=== PATIENT | male | born 1960 | race Caucasian/White ===

== ENCOUNTER 2017-02-13 15:21 | Emergency (ER) | payer OTHER, MEDICAID ==
--- NOTE | 2017-02-13 16:00 | ER Document Report ---
ED General - General Chief Complaint: Low Back Pain Stated Complaint: BACK PAIN Time Seen by Provider: 02/13/17 15:33 Notes: Patient says that he has been feeling weak for the past month. Also having difficulty controlling his urine and "peeing on myself" over that same time. And, the patient also has lower back pain. All of his symptoms have been present for about the past month, but have gotten worse in the past few days. Patient says he is here today because he is unable to stand and walk normally and has not been able to control his urine at all for the past few days. Does not have any numbness in his lower extremities. Does not have any problems with bowel movements. Has never been told he has any prostate condition. Denies any UTI symptoms except for some occasional frequency at nighttime. Has not had any blood in his urine or discomfort urinating. Patient is not aware of any fever. 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 Also has hypertension. Denies diabetes. Patient has patient's medications for depression and anxiety. Patient has chronic low back pain for which she is prescribed baclofen and meloxicam by the [place] [facility]. TRAVEL OUTSIDE OF THE [place] IN LAST 30 DAYS: No - Related Data Allergies/Adverse Reactions: zolpidem [From Ambien] Adverse Reaction (Mild, Verified 06/04/16 16:44) Past Medical History - Social History Smoking Status: Never Smoker Chew tobacco use (# tins/day): No Frequency of alcohol use: None Drug Abuse: None Family History: Reviewed & Not Pertinent - Past Medical History Cardiac Medical History: Reports: Hx Hypercholesterolemia, Hx Hypertension Pulmonary Medical History: Reports: Hx Asthma Psychiatric Medical History: Reports: Hx Anxiety, Hx Depression Past Surgical History: Reports: Hx Oral Surgery, Hx Orthopedic Surgery - OCL repair - Immunizations Hx Diphtheria, Pertussis, Tetanus Vaccination: Yes Review of Systems - Review of Systems Notes: REVIEW OF SYSTEMS: CONSTITUTIONAL : Denies fever. Feels weak all over, especially in his lower extremities. EENT: Denies eye, ear, nose or mouth or throat pain or other symptoms. CARDIOVASCULAR: Denies chest pain. RESPIRATORY: Denies cough, chest congestion, or shortness of breath. GASTROINTESTINAL: Denies abdominal pain or nausea, vomiting, or diarrhea. No problems controlling bowel movements. GENITOURINARY: See HPI. MUSCULOSKELETAL: Denies neck pain but has some lower lumbar back pain, bilateral.. Denies joint pain or swelling. SKIN: Denies rash or skin lesions. NEUROLOGICAL: Denies LOC or altered mental status. Denies headache. Denies sensory loss, no numbness lower extremities. ALL OTHER SYSTEMS REVIEWED AND NEGATIVE. Physical Exam - Vital signs Vitals: Temp Pulse Resp BP Pulse Ox 98.3 F 102 H 16 146/82 H 95 02/13/17 15:25 02/13/17 15:25 02/13/17 15:25 02/13/17 15:25 02/13/17 15:25 Interpretation: Normal - Notes Notes: PHYSICAL EXAMINATION: GENERAL: Well-appearing, in no acute distress. Ambulatory, although slow and deliberate. HEAD: Atraumatic, normocephalic. ENT: oropharynx clear without exudates. Moist mucous membranes. NECK: Normal range of motion, supple. LUNGS: Breath sounds clear and equal bilaterally. HEART: Regular rate and rhythm without murmurs. ABDOMEN: Soft, nontender. No guarding or rebound. No masses felt. No bruits heard. Patient's initial Pham catheter produced about 50 mL of clean-looking urine. He now has about 70 mL in the bag and tubing so he is making an appropriate amount of urine and no evidence of infection or urinary retention. BACK: Mild paralumbar muscle tenderness, but otherwise no tenderness throughout entire remaining back. EXTREMITIES: Normal range of motion without pain. NEUROLOGICAL: Normal speech, normal gait although slow and deliberate. Can maintain his balance, make a turn and get back in the stretcher. Reflexes +1 bilateral and symmetrical awake, alert, and oriented x3. Cranial nerves normal. PSYCH: Normal mood, normal affect. SKIN: Warm, dry, no rashes. Course - Re-evaluation Re-evalutation: 02/13/17 19:53 Labs are all essentially normal. No evidence of a urine infection. Patient had a Pham catheter placed and had a small amount of urine in his bladder. Urine looks clean. Urinalysis is normal. - Vital Signs Vital signs: Temp Pulse Resp BP Pulse Ox 97.3 F 92 19 146/83 H 94 02/13/17 22:09 02/13/17 22:09 02/13/17 22:09 02/13/17 22:09 02/13/17 22:09 - Laboratory Result Diagrams: 02/13/17 16:17 02/13/17 16:17 Laboratory results interpreted by me: 02/13/17 02/13/17 16:17 16:17 RDW 14.4 H Glucose 141 H - Diagnostic Test Radiology reviewed: Image reviewed, Reports reviewed - MRI of the lumbar spine shows degenerative and arthritic changes. All of these findings are of a mild to moderate degree. None are severe. Patient has no evidence of spinal stenosis. Discharge - Discharge Clinical Impression: Back pain Qualifiers: Back pain location: low back pain Chronicity: unspecified Back pain laterality : bilateral Sciatica presence: without sciatica Qualified Code(s): M54.5 - Low back pain Urinary incontinence Qualifiers: Urinary Incontinence type: unspecified incontinence Qualified Code(s): R32 - Unspecified urinary incontinence Condition: Stable Disposition: HOME, SELF-CARE Additional Instructions: OW BACK PAIN: Three out of every four people will have an episode of disabling back pain during their lifetime. Most commonly the pain is due to straining of the muscles and ligaments in the low back. Usual treatment includes: (1) Rest on a firm surface. Avoid lying on your stomach. (2) Ice pack the painful area. After a few days, gentle heat may be used intermittently to relax the area, or ice packs can be continued. (3) Medication may be needed -- muscle relaxers and antiinflammatory medicines are commonly used. (4) As the back improves, exercises are prescribed to strengthen the back and abdominal muscles. Your doctor will advise you on the proper care for your back at each stage in your recovery. You may be better in a few days -- or healing may take several weeks. If new symptoms of a "herniated disc" (radiation of pain, numbness, or tingling down the back of the leg or weakness in the leg) occur, you should be re-examined. Further testing may be necessary. WARM PACKS: After approximately two days, apply gentle heat (such as a heating pad or hot water bottle) for about 20 to 30 minutes about every two hours -- at least four times daily. Warmth and elevation will help you make a more rapid recovery , and will ease the pain considerably. Do not use HOT heat, and never apply heat for longer than 30 minutes. The continuous heat can invisibly damage skin and muscles -- even when no burn is seen on the surface. Damaged muscles can make you MORE sore. USE OF ACETAMINOPHEN (Tylenol): Acetaminophen may be taken for pain relief or fever control. It's much safer than aspirin, offering a wider range of "safe" dosages. It is safe during . Some brand names are Tylenol, Panadol, Datril, Anacin 3, Tempra, and Liquiprin. Acetaminophen can be repeated every four hours. The following are maximum recommended dosages: WEIGHT Dose Drops Elixir Chewable( 80mg) (LBS.) drprs=droppers tsp=teaspoon >89 pounds or adults 650 mg to 900 mg Acetaminophen can be repeated every four hours. Maximum dose not to exceed 4000 mg a day. These maximum recommended dosages are slightly higher than the dosages written on the product container, but these dosages are very safe and below the toxic dosage for acetaminophen. Urinary Incontinence Urinary incontinence is unexpected leakage of urine from the bladder. It can be caused by damaged or weak pelvic muscles (such as after childbirth), bladder inflammation, weak bladder sphincter (valve), medications, prostate problems, and nerve problems. This is a common problem, especially in our older patients. Treatment of incontinence depends on the severity, and on the underlying cause. We test for urinary tract infection and examine for prostate enlargement or prolapse (sagging down) of the bladder and uterus. If we suspect a medicine may be contributing to the problem, we may stop it or lower the dosage. If the problem can't be corrected with medication or surgery, you may need to use absorbent underwear. For men, a "condom catheter" over the penis can collect urine. It's sometimes necessary to keep a catheter inside the bladder. The following are different types of urinary incontinence. Stress incontinence: A sudden burst of urine with cough or sneeze. This is common in women with multiple children. Pelvic muscle (Kegel) exercises may help. An incontinence pad catches the occasional accident. If severe, an operation to suspend of the bladder may correct the problem. Overflow incontinence: Leakage from an over-filled bladder. This type of incontinence is usually caused by an enlarged prostate or narrowed urethra. Prostatic obstruction can be treated with medication. Severe cases may require prostate surgery. Neurogenic bladder: Sudden emptying of the bladder due to injury or disease of the nerves that control the bladder, or overflow caused by lack of bladder contraction (atonic bladder). This usually requires a catheter, or the wearing of incontinence undergarments. A weak (atonic) bladder sometimes responds to medicine such as bethanechol (Urecholine). Overactive bladder: The bladder is irritable and tightens when it's not full. The sudden urge to urinate makes it hard to avoid passage of urine. This can often be treated with medication such as oxybutynin. Sphincter atony: The muscle that holds urine in the bladder is weak. This often causes incontinence at night. Medication such as imipramine or psuedoephedrine can sometimes help. FOLLOW-UP CARE: If you have been referred to a physician for follow-up care, call the physician s office for an appointment as you were instructed or within the next two days. If you experience worsening or a significant change in your symptoms, notify the physician immediately or return to the Emergency Department at any time for re-evaluation. Follow-up at the [place] [facility] for a referral to a urologist if you continue to have your symptoms of poor bladder control.
[2017-02-13 16:24] LABS: ABSOLUTE BASOPHILS # (AUTO) 0.1 10^3/uL (0.0-0.2); ABSOLUTE EOSINOPHILS # (AUTO) 0.1 10^3/uL (0.0-0.6); ABSOLUTE MONOCYTES (AUTO) 0.5 10^3/uL (0.1-1.4); ABSOLUTE NEUT (AUTO) 5.7 10^3/uL (1.7-8.2); BASOPHILS % (AUTO) 0.9 % (0-2); HEMATOCRIT 44.5 % (37.9-51.0); HEMOGLOBIN 15.5 g/dL (13.5-17.0); LYMPHOCYTES % (AUTO) 13.4 % (13-45); MEAN CORPUSCULAR HGB CONC 34.8 g/dL (32.0-36.0); MEAN CORPUSCULAR VOLUME 86 fl (80-97); RED BLOOD COUNT 5.17 10^6/uL (4.35-5.55); RED CELL DISTRIBUTION WIDTH 14.4 % (11.5-14.0); SEGMENTED NEUTROPHILS % (AUTO) 77.7 % (42-78); WHITE BLOOD COUNT 7.3 10^3/uL (4.0-10.5)
[2017-02-13 16:48] LABS: ALANINE AMINOTRANSFERASE 21 U/L (21-72); ALKALINE PHOSPHATASE 78 U/L (38-126); ANION GAP 13 (5-19); ASPARTATE AMINO TRANSFERASE 26 U/L (17-59); BILIRUBIN,DIRECT 0.4 mg/dL (0.0-0.4); BILIRUBIN,TOTAL 0.9 mg/dL (0.2-1.3); BLOOD UREA NITROGEN 15 mg/dL (7-20); CALCIUM 9.3 mg/dL (8.4-10.2); CARBON DIOXIDE 24 mmol/L (22-30); CHLORIDE 105 mmol/L (98-107); CREATININE RESULT 1.24 mg/dL (0.52-1.25); GLUCOSE 141 mg/dL (75-110); LIPASE 64.4 U/L (23-300); POTASSIUM 3.9 mmol/L (3.6-5.0); SODIUM 141.9 mmol/L (137-145); TOTAL PROTEIN 6.4 g/dL (6.3-8.2)
[2017-02-13 17:35] LABS: APPEARANCE,URINE SLIGHTLY-CLOUDY; BILIRUBIN,URINE NEGATIVE (NEGATIVE); GLUCOSE, URINE NEGATIVE (NEGATIVE); KETONES,URINE NEGATIVE (NEGATIVE); LEUKOCYTE ESTERASE,URINE NEGATIVE (NEGATIVE); NITRITE,URINE NEGATIVE (NEGATIVE); PROTEIN,URINE NEGATIVE (NEGATIVE); URINE SPECIFIC GRAVITY 1.019; UROBILINOGEN,URINE NEGATIVE mg/dL (<2.0)
--- NOTE | 2017-02-13 22:02 | RADIOLOGY REPORT (SQ) ---
EXAM DESCRIPTION: MRI LUMBAR SPINE WITHOUT COMPLETED DATE/TIME: 02/13/2017 9:38 pm REASON FOR STUDY: Urinary incontinence and weakness in legs COMPARISON: None. TECHNIQUE: Sagittal and Axial imaging includes T1, T2, STIR and gradient echo sequences. Coronal T2/ HASTE imaging. LIMITATIONS: None. FINDINGS: VISUALIZED UPPER ABDOMEN: Limited evaluation. No acute or suspicious findings suggested. SEGMENTATION: No transitional anatomy. The lowest well-developed disc space is labeled L5-S1. ALIGNMENT: Anatomic. VERTEBRAE: Intact. BONE MARROW: Normal. No marrow replacement or reactive changes. DISC SIGNAL: Loss of height T2 signal L1- 2, L2-3, L5-S1. Loss of T2 signal L4-5. POSTERIOR ELEMENTS: Generally intact. No pars defect evident. HARDWARE: None in the spine. CORD AND CONUS: Normal in size and signal intensity. Conus at the appropriate level. SOFT TISSUES: No aortic aneurysm seen. No bulky retroperitoneal adenopathy or mass. No paraspinal mas s or fluid. L1-L2: Disc bulge asymmetric left with mild narrowing of the left exit foramina. L2-L3: Generalized disc bulge with mild narrowing of the exit foramina. L3-L4: Generalized disc bulge with mild narrowing of the exit foramina. L4-L5: Central disc protrusion. Mild facet ligamentous hypertrophy. Moderate narrowing of the left exit foramina and moderate central canal stenosis. Mild narrowing of the left exit foramina. L5-S1: Generalized disc bulge with central protrusion. Moderate narrowing of the exit foramina. LOWER THORACIC: Incompletely imaged. No stenosis seen. SACRUM: Visualized upper sacrum intact. OTHER: No other significant findings. IMPRESSION: Multilevel spondylosis. At L4-5 there is moderate narrowing of the left exit foramina a nd moderate central canal stenosis. At L5-S1 there is moderate of the exit foramina. TECHNICAL DOCUMENTATION: JOB ID: [id number]- All Rights Reserved
[2017-02-13 22:13] VITALS: BP 146/83
== END 2017-02-13 22:50 | disposition home or self-care (01) ==
LOC: ER 15:21
DX: M54.5 Low back pain (principal); R32 Unspecified urinary incontinence; I10 Essential (primary) hypertension; G89.29 Other chronic pain
CPT/HCPCS: 36415; 51702; 72148; 80053; 81001; 83690; 85025; 87086; 99284

== ENCOUNTER 2018-11-13 17:50 | Observation (INO) | payer OTHER, MEDICARE ==
[2018-11-13 18:43] LABS: ABSOLUTE BASOPHILS # (AUTO) 0.1 10^3/uL (0.0-0.2); ABSOLUTE LYMPHOCYTES (AUTO) 1.1 10^3/uL (0.5-4.7); ABSOLUTE MONOCYTES (AUTO) 0.6 10^3/uL (0.1-1.4); BASOPHILS % (AUTO) 1.1 % (0-2); EOSINOPHILS % (AUTO) 0.3 % (0-6); HEMATOCRIT 51.1 % (37.9-51.0); HEMOGLOBIN 17.7 g/dL (13.5-17.0); LYMPHOCYTES % (AUTO) 12.3 % (13-45); MEAN CORPUSCULAR HEMOGLOBIN 29.2 pg (27.0-33.4); MEAN CORPUSCULAR HGB CONC 34.6 g/dL (32.0-36.0); MEAN CORPUSCULAR VOLUME 84 fl (80-97); MONOCYTES % (AUTO) 6.7 % (3-13); PLATELET COUNT 325 10^3/uL (150-450); RED BLOOD COUNT 6.06 10^6/uL (4.35-5.55); SEGMENTED NEUTROPHILS % (AUTO) 79.6 % (42-78); TOTAL CELLS COUNTED % (AUTO) 100 %; WHITE BLOOD COUNT 8.8 10^3/uL (4.0-10.5)
--- NOTE | 2018-11-13 18:43 | ER Document Report ---
ED General - General Chief Complaint: Syncope Stated Complaint: FALL Time Seen by Provider: 11/13/18 18:14 Mode of Arrival: Stretcher Information source: Patient Notes: This is a 58-year-old man with a history of asthma, dyslipidemia, essential tremor who was brought into the emergency room after a syncopal episode. Patient does not remember the event. He apparently fell and hit his head. TRAVEL OUTSIDE OF THE [place] IN LAST 30 DAYS: No - HPI Onset: Just prior to arrival Onset/Duration: Sudden Quality of pain: No pain Severity: None Pain Level: Denies Associated symptoms: denies: Chest pain, Fever, Shortness of breath Exacerbated by: Denies Relieved by: Denies Similar symptoms previously: No Recently seen / treated by doctor: No - Related Data Allergies/Adverse Reactions: zolpidem [From Ambien] Adverse Reaction (Mild, Verified 06/04/16 16:44) Past Medical History - General Information source: Patient - Social History Smoking Status: Unknown if Ever Smoked Cigarette use (# per day): No Chew tobacco use (# tins/day): No Frequency of alcohol use: None Drug Abuse: None Lives with: Alone Family History: Reviewed & Not Pertinent Patient has suicidal ideation: No Patient has homicidal ideation: No - Past Medical History Cardiac Medical History: Reports: Hx Hypercholesterolemia, Hx Hypertension Denies: Hx Heart Attack Pulmonary Medical History: Reports: Hx Asthma Neurological Medical History: Denies: Hx Cerebrovascular Accident, Hx Seizures Renal/ Medical History: Denies: Hx Peritoneal Dialysis GI Medical History: Denies: Hx Hepatitis, Hx Hiatal Hernia, Hx Ulcer Psychiatric Medical History: Reports: Hx Anxiety, Hx Depression Infectious Medical History: Denies: Hx Hepatitis Past Surgical History: Reports: Hx Oral Surgery, Hx Orthopedic Surgery - OCL repair, Other - Anal fissure. Denies: Hx Open Heart Surgery, Hx Pacemaker - Immunizations Hx Diphtheria, Pertussis, Tetanus Vaccination: Yes Review of Systems - Review of Systems Constitutional: denies: Chills, Fever EENT: No symptoms reported Cardiovascular: See HPI Respiratory: No symptoms reported Gastrointestinal: No symptoms reported Genitourinary: No symptoms reported Male Genitourinary: No symptoms reported Musculoskeletal: No symptoms reported Skin: No symptoms reported Hematologic/Lymphatic: No symptoms reported Neurological/Psychological: See HPI Physical Exam - Vital signs Vitals: Temp Pulse Resp BP 97.9 F 100 16 148/100 H 11/13/18 18:13 11/13/18 18:13 11/13/18 18:13 11/13/18 18:13 Notes: Physical exam: GENERAL: Patient is alert and oriented x3, no acute distress. HEAD: She does have abrasions to the left side of the temporal region as well as the left cheek, normocephalic. EYES: Pupils equal round and reactive to light, extraocular movements intact, sclera anicteric, conjunctiva are normal. ENT: TMs normal, nares patent, oropharynx clear without exudates. Moist mucous membranes. NECK: Normal range of motion, supple without obvious mass or JVD. LUNGS: Breath sounds clear to auscultation bilaterally and equal. No wheezes rales or rhonchi. HEART: Regular rate and rhythm without murmurs, rubs or gallops. ABDOMEN: Soft, normoactive bowel sounds. No tenderness to palpation. No guarding, no rebound. No masses appreciated. EXTREMITIES: Normal range of motion, no pitting or edema. No clubbing or cyanosis. NEUROLOGICAL: Cranial nerves II through XII grossly intact. Normal speech, moving all extremities. PSYCH: Normal mood, normal affect. SKIN: Warm, Dry, normal turgor, no rashes or lesions noted. Course - Vital Signs Vital signs: Temp Pulse Resp BP Pulse Ox 97.9 F 100 20 146/99 H 97 11/13/18 18:13 11/13/18 18:13 11/14/18 01:01 11/14/18 01:00 11/14/18 01:01 - Laboratory Result Diagrams: 11/13/18 18:06 11/13/18 18:06 Laboratory results interpreted by me: 11/13/18 11/13/18 11/13/18 17:59 18:06 18:06 RBC 6.06 H Hgb 17.7 H Hct 51.1 H Seg Neutrophils % 79.6 H Lymphocytes % 12.3 L Sodium 136.9 L Potassium 3.5 L Carbon Dioxide 20 L POC Glucose 125 H Direct Bilirubin 0.5 H Alkaline Phosphatase 180 H - Diagnostic Test Radiology reviewed: Image reviewed, Reports reviewed - CT of the head, cervical spine shows no acute pathology. Chest x-ray is clear - EKG Interpretation by Me Rate: Normal Rhythm: NSR - EKG shows normal sinus rhythm with a ventral of the rate of 94, poor R wave progression, no acute ST-T wave changes Discharge - Discharge Clinical Impression: Syncope Qualifiers: Encounter type: initial encounter Condition: Stable Disposition: ADMITTED OBSERVATION Admitting Provider: Hospitalist Unit Admitted: Telemetry
--- NOTE | 2018-11-13 18:44 | RADIOLOGY REPORT (SQ) ---
EXAM DESCRIPTION: CHEST SINGLE VIEW COMPLETED DATE/TIME: 11/13/2018 6:40 pm REASON FOR STUDY: syncope COMPARISON: 06/04/2016 EXAM PARAMETERS: NUMBER OF VIEWS: One view. TECHNIQUE: Single frontal radiographic view of the chest acquired. RADIATION DOSE: NA LIMITATIONS: None. FINDINGS: LUNGS AND PLEURA: No opacities, masses or pneumothorax. No pleural effusion. MEDIASTINUM AND HILAR STRUCTURES: No masses. Contour normal. HEART AND VASCULAR STRUCTURES: Heart normal in size. Normal vasculature. BONES: No acute findings. HARDWARE: None in the chest. OTHER: No other significant finding. IMPRESSION: NO ACUTE RADIOGRAPHIC FINDING IN THE CHEST. TECHNICAL DOCUMENTATION: JOB ID: [id number] [employer]- All Rights Reserved Reading location - IP/workstation name: [email or web address]
[2018-11-13 18:45] LABS: INTERNATIONAL RATION (INR) 0.99; PROTHROMBIN TIME 13.6 SEC (11.4-15.4)
[2018-11-13 18:48] LABS: ALANINE AMINOTRANSFERASE 27 U/L (21-72); ALBUMIN 4.3 g/dL (3.5-5.0); ALKALINE PHOSPHATASE 180 U/L (38-126); ANION GAP 16 (5-19); ASPARTATE AMINO TRANSFERASE 32 U/L (17-59); BILIRUBIN,DIRECT 0.5 mg/dL (0.0-0.4); BLOOD UREA NITROGEN 10 mg/dL (7-20); CALCIUM 9.9 mg/dL (8.4-10.2); CARBON DIOXIDE 20 mmol/L (22-30); CHLORIDE 101 mmol/L (98-107); CREATINE KINASE 115 U/L (55-170); GLUCOSE 93 mg/dL (75-110); POTASSIUM 3.5 mmol/L (3.6-5.0); SODIUM 136.9 mmol/L (137-145); TOTAL PROTEIN 7.2 g/dL (6.3-8.2)
--- NOTE | 2018-11-13 18:48 | RADIOLOGY REPORT (SQ) ---
EXAM DESCRIPTION: CT HEAD WITHOUT COMPLETED DATE/TIME: 11/13/2018 6:41 pm REASON FOR STUDY: fall, head injury loc COMPARISON: None. TECHNIQUE: Axial images acquired through the brain without intravenous contrast. Images reviewed wi th bone, brain and subdural windows. Images stored on PACS. All CT scanners at this facility use dose modulation, iterative reconstruction, and/or weight based d osing when appropriate to reduce radiation dose to as low as reasonably achievable (ALARA). [facility]: Dose Right [facility]: CareDose [facility]: Dose Right [facility]: Teradose 4D [facility]: Smart [employer] RADIATION DOSE: CT Rad equipment meets quality standard of care and radiation dose reduction techniq ues were employed. CTDIvol: 64.6 mGy. DLP: 1292 mGy-cm. mGy. LIMITATIONS: None. FINDINGS: VENTRICLES: Normal size and contour. CEREBRUM: No masses. No hemorrhage. No midline shift. No evidence for acute infarction. Normal gra y/white matter differentiation. No areas of low density in the white matter. CEREBELLUM: No masses. No hemorrhage. No alteration of density. No evidence for acute infarction. EXTRAAXIAL SPACES: No fluid collections. No masses. ORBITS AND GLOBE: No intra- or extraconal masses. Normal contour of globe without masses. CALVARIUM: No fracture. PARANASAL SINUSES: No fluid or mucosal thickening. SOFT TISSUES: No mass or hematoma. OTHER: No other significant finding. IMPRESSION: NORMAL BRAIN CT WITHOUT CONTRAST. EVIDENCE OF ACUTE STROKE: NO. COMMENT: Quality ID # [id number]: Final reports with documentation of one or more dose reduction techniques (e.g., Automated exposure control, adjustment of the mA and/or kV according to patient size, use of iterative reconstruction technique) TECHNICAL DOCUMENTATION: JOB ID: [id number] [employer]- All Rights Reserved Reading location - IP/workstation name: [email or web address]
--- NOTE | 2018-11-13 18:50 | RADIOLOGY REPORT (SQ) ---
EXAM DESCRIPTION: CT CERVICAL SPINE WITHOUT COMPLETED DATE/TIME: 11/13/2018 6:41 pm REASON FOR STUDY: fall COMPARISON: None. TECHNIQUE: Axial images acquired through the cervical spine without intravenous contrast. Images re viewed with lung, soft tissue and bone windows. Reconstructed coronal and sagittal MPR images review ed. Images stored on PACS. All CT scanners at this facility use dose modulation, iterative reconstruction, and/or weight based d osing when appropriate to reduce radiation dose to as low as reasonably achievable (ALARA). [facility]: Dose Right [facility]: CareDose [facility]: Dose Right [facility]: Teradose 4D [facility]: Smart [employer] RADIATION DOSE: CT Rad equipment meets quality standard of care and radiation dose reduction techniq ues were employed. CTDIvol: 18.9 mGy. DLP: 445 mGy-cm. mGy. LIMITATIONS: None. FINDINGS: ALIGNMENT: Anatomic. MINERALIZATION: Normal. VERTEBRAL BODIES: No fractures or dislocation. DISCS: Multilevel disc space narrowing with osteophytes. FACETS, LATERAL MASSES, POSTERIOR ELEMENTS: Facet arthropathy. No fractures. No dislocation. No ac tiffanie findings. HARDWARE: None in the spine. VISUALIZED RIBS: No fractures. LUNG APICES AND SOFT TISSUES: No significant or acute findings. OTHER: No other significant finding. IMPRESSION: CHRONIC DEGENERATIVE CHANGES. NO ACUTE FINDINGS. TECHNICAL DOCUMENTATION: JOB ID: [id number] Quality ID # [id number]: Final reports with documentation of one or more dose reduction techniques (e.g., Au tomated exposure control, adjustment of the mA and/or kV according to patient size, use of iterative reconstruction technique) 2010 [employer]- All Rights Reserved Reading location - IP/workstation name: [email or web address]
[2018-11-13 19:00] LABS: CREATINE KINASE MB 3.25 ng/mL (<4.55); TROPONIN I < 0.012 ng/mL
--- NOTE | 2018-11-13 20:14 | EKG REPORT ---
SEVERITY:- ABNORMAL ECG - SINUS RHYTHM LEFT ANTERIOR FASCICULAR BLOCK CONSIDER ANTEROSEPTAL INFARCT : Confirmed by: Lizbeth Best MD 13-Nov-2018 20:14:03
[2018-11-13 23:54] LABS: URINE AMPHETAMINES SCREEN NEGATIVE; URINE BARBITURATES SCREEN NEGATIVE; URINE BENZODIAZEPINES SCREEN NEGATIVE; URINE COCAINE SCREEN NEGATIVE; URINE MARIJUANA (THC) SCREEN NEGATIVE; URINE METHADONE SCREEN NEGATIVE; URINE PHENCYCLIDINE SCREEN NEGATIVE
[2018-11-14] MEDS ORDERED: IPRATROPIUM/ALBUTEROL 0.5-2.5 MG/3 ML AMPUL NEB PRN (00:46)
[2018-11-14] MEDS ORDERED: ENALAPRILAT DIHYDRATE INJ/PF 1.25 MG/1 ML SDV IV ONE (03:30)
--- NOTE | 2018-11-14 04:56 | PDOC CONSULTATION ---
History of Present Illness Admission Date/PCP: 11/13/18 22:03 [facility] Patient complains of: Asked by hospitalist to evaluate half an inch laceration of the patient's left lower jaw History of Present Illness: SELINA LAFLEUR is a 58 year old male status post fall with resultant small laceration in his left lower jaw. The fall occurred yesterday. Past Medical History Cardiac Medical History: Reports: Hyperlipidema, Hypertension Denies: Myocardial Infarction Pulmonary Medical History: Reports: Asthma Neurological Medical History: Denies: Seizures GI Medical History: Denies: Hepatitis, Hiatal Hernia Psychiatric Medical History: Reports: Depression Hematology: Denies: Anemia, Sickle Cell Disease Past Surgical History Past Surgical History: Reports: Orthopedic Surgery - OCL repair, Other - Anal fissure Denies: Pacemaker Social History Lives with: Alone Smoking Status: Never Smoker Hx Recreational Drug Use: No Hx Prescription Drug Abuse: No - Advance Directive Resuscitation Status: Full Code Family History Family History: None Parental Family History Reviewed: No Children Family History Reviewed: No Sibling(s) Family History Reviewed.: No Medication/Allergy Home Medications: Aspirin [Aspirin 81 mg Chewable Tablet] 81 mg PO DAILY 11/13/11 Lisinopril/Hydrochlorothiazide [Zestoretic 20-25 Mg Tablet] 1 each PO DAILY 11/13/11 Metoprolol Tartrate [Lopressor 50 mg Tablet] 50 mg PO Q12H 11/13/11 Multivitamin [Vitamin A Day] 1 each PO DAILY 11/13/11 Niacin (Inositol Niacinate) [Niacin 500 Mg Capsule] 1 each PO DAILY 11/13/11 [place]-3 Fatty Acids/Fish Oil [Fish Oil 1,000 Mg Capsule] 1 each PO DAILY 11/13/11 Pravastatin Sodium 20 mg PO QHS 11/13/11 Bupropion HCl [Wellbutrin Xl] 150 mg PO BID 01/26/13 Clonazepam [Klonopin 1 Mg Tablet] 1 mg PO BID PRN 01/26/13 Sildenafil Citrate [Sildenafil] 20 mg PO PRN 01/26/13 Venlafaxine HCl [Venlafaxine HCl ER] 37.5 mg PO ASDIR PRN 01/26/13 Trazodone HCl 150 mg PO QHS 03/24/14 Sulfamethoxazole/Trimethoprim [Bactrim Ds Tablet] 1 each PO BID #14 tablet 10/01/14 Hydromorphone HCl [Dilaudid 2 Mg Tablet] 2 mg PO Q4HP PRN #10 tablet 11/21/14 Docusate Sodium [Colace 100 mg Capsule] 100 mg PO DAILY #30 capsule 12/01/14 Oxycodone HCl 5 mg PO Q6 #30 capsule 12/01/14 Hydrocodone/Acetaminophen [[place] 5-325 mg Tablet] 1 tab PO Q6 #14 tablet 03/21/15 Butalb/Acetaminophen/Caffeine [Fioricet 50-300-40 mg Capsule] 1 cap PO Q4 PRN #20 cap 06/11/15 Allergies/Adverse Reactions: zolpidem [From Ambien] Adverse Reaction (Mild, Verified 06/04/16 16:44) Physical Exam Vital Signs: Temp Pulse Resp BP Pulse Ox 98.2 F 92 16 181/111 H 99 11/14/18 03:01 11/14/18 03:55 11/14/18 03:01 11/14/18 03:55 11/14/18 03:01 Intake & Output 11/12/18 11/13/18 11/14/18 06:59 06:59 06:59 Weight 76.6 kg General appearance: PRESENT: disheveled Skin exam: PRESENT: other - Thickly bearded patient with a PARTIAL thickness skin laceration about half an inch long at his left lower jaw that appears clean. No subcutaneous fat exposed. Results Laboratory Results: 11/13/18 18:06 11/13/18 18:06 11/13/18 11/13/18 11/13/18 18:06 18:06 18:06 WBC 8.8 RBC 6.06 H Hgb 17.7 H Hct 51.1 H MCV 84 MCH 29.2 MCHC 34.6 RDW 14.0 Plt Count 325 Seg Neutrophils % 79.6 H Lymphocytes % 12.3 L Monocytes % 6.7 Eosinophils % 0.3 Basophils % 1.1 Absolute Neutrophils 7.0 Absolute Lymphocytes 1.1 Absolute Monocytes 0.6 Absolute Eosinophils 0.0 Absolute Basophils 0.1 Sodium 136.9 L Potassium 3.5 L Chloride 101 Carbon Dioxide 20 L Anion Gap 16 BUN 10 Creatinine 1.23 Est GFR ( Amer) > 60 Est GFR (Non-Af Amer) > 60 Glucose 93 Calcium 9.9 Magnesium 2.0 Total Bilirubin 1.0 AST 32 ALT 27 Alkaline Phosphatase 180 H Total Protein 7.2 Albumin 4.3 11/13/18 11/13/18 11/13/18 18:06 18:06 23:20 Creatine Kinase 115 CK-MB (CK-2) 3.25 Troponin I < 0.012 < 0.012 Impressions: Cervical Spine CT 11/13/18 18:22 IMPRESSION: CHRONIC DEGENERATIVE CHANGES. NO ACUTE FINDINGS. Chest X-Ray 11/13/18 18:22 IMPRESSION: NO ACUTE RADIOGRAPHIC FINDING IN THE CHEST. Head CT 11/13/18 18:22 IMPRESSION: NORMAL BRAIN CT WITHOUT CONTRAST. EVIDENCE OF ACUTE STROKE: NO. Assessment & Plan - Diagnosis (1) Partial thickness skin laceration Is this a current diagnosis for this admission?: Yes Plan: Partial thickness small skin laceration on the jaw. Partial thickness small skin lacerations does not need surgical intervention unless it is a cosmetic issue. Would not be a cosmetic issue in this thickly bearded patient. Furthermore, suture closure of such a laceration this many hours after injury would actually increase risk of infection. Recommend bacitracin ointment twice a day.
[2018-11-14] MEDS: HEPARIN SOD (PORCINE) 5,000 UNIT/ML 1 ML SYRINGE SUBCUT SCH ×3 (05:52→21:37)
[2018-11-14] MEDS: NORMAL SALINE 1000 ML 1,000 ML IV PRN (11:29)
--- NOTE | 2018-11-14 13:56 | PDOC PROGRESS REPORT ---
Subjective Progress Note for:: 11/14/18 Subjective:: This is a 58 yr old male with a PMH of asthma, dyslipidemia, essential tremor and polypharmacy who preented with fall and syncope. He was admitted for a syncope work-up. He also sustained laceration on the head form the fall. No acute event overnight. This morning, he says he says he feels dizzy and lightheaded when he walks. His morning vital signs show orthostatic blood pressures. Will start him on IV fluids and continue monitoring orthostats. Reason For Visit: SYNCOPE Physical Exam Vital Signs: Temp Pulse Resp BP Pulse Ox 97.9 F 85 16 134/93 H 98 11/14/18 07:33 11/14/18 07:33 11/14/18 07:33 11/14/18 07:33 11/14/18 07:33 Intake & Output 11/13/18 11/14/18 11/15/18 06:59 06:59 06:59 Output Total 0 Balance 0 Weight 168 lb 13.985 oz General appearance: PRESENT: no acute distress, well-developed, well-nourished Eye exam: PRESENT: conjunctiva pink, EOMI, PERRLA. ABSENT: scleral icterus Ear exam: PRESENT: normal external ear exam Mouth exam: PRESENT: moist, tongue midline Neck exam: ABSENT: carotid bruit, JVD, lymphadenopathy, thyromegaly Respiratory exam: PRESENT: clear to auscultation deejay. ABSENT: rales, rhonchi, wheezes Cardiovascular exam: PRESENT: RRR. ABSENT: diastolic murmur, rubs, systolic murmur Pulses: PRESENT: normal dorsalis pedis pul GI/Abdominal exam: PRESENT: normal bowel sounds, soft. ABSENT: distended, guarding, mass, organolmegaly, rebound, tenderness Rectal exam: PRESENT: deferred Neurological exam: PRESENT: alert, awake, oriented to person, oriented to place, oriented to time, oriented to situation, CN II-XII grossly intact. ABSENT: motor sensory deficit Results Laboratory Results: 11/13/18 18:06 11/13/18 18:06 11/13/18 11/13/18 11/13/18 18:06 18:06 18:06 WBC 8.8 RBC 6.06 H Hgb 17.7 H Hct 51.1 H MCV 84 MCH 29.2 MCHC 34.6 RDW 14.0 Plt Count 325 Seg Neutrophils % 79.6 H Lymphocytes % 12.3 L Monocytes % 6.7 Eosinophils % 0.3 Basophils % 1.1 Absolute Neutrophils 7.0 Absolute Lymphocytes 1.1 Absolute Monocytes 0.6 Absolute Eosinophils 0.0 Absolute Basophils 0.1 Sodium 136.9 L Potassium 3.5 L Chloride 101 Carbon Dioxide 20 L Anion Gap 16 BUN 10 Creatinine 1.23 Est GFR ( Amer) > 60 Est GFR (Non-Af Amer) > 60 Glucose 93 Calcium 9.9 Magnesium 2.0 Total Bilirubin 1.0 AST 32 ALT 27 Alkaline Phosphatase 180 H Total Protein 7.2 Albumin 4.3 11/13/18 11/13/18 11/13/18 18:06 18:06 23:20 Creatine Kinase 115 CK-MB (CK-2) 3.25 Troponin I < 0.012 < 0.012 11/14/18 11/14/18 05:07 11:38 Creatine Kinase CK-MB (CK-2) Troponin I < 0.012 < 0.012 Impressions: Cervical Spine CT 11/13/18 18:22 IMPRESSION: CHRONIC DEGENERATIVE CHANGES. NO ACUTE FINDINGS. Chest X-Ray 11/13/18 18:22 IMPRESSION: NO ACUTE RADIOGRAPHIC FINDING IN THE CHEST. Head CT 11/13/18 18:22 IMPRESSION: NORMAL BRAIN CT WITHOUT CONTRAST. EVIDENCE OF ACUTE STROKE: NO. Assessment and Plan - Diagnosis (1) Syncope Qualifiers: Encounter type: initial encounter Is this a current diagnosis for this admission?: Yes Plan: Likely from orthostasis with polpyharmacy contributing. He says his PCP has actuall been cutting down on his Klonopin and other psych meds. (2) Asthma Is this a current diagnosis for this admission?: Yes Plan: Not in exacerbation. Breathing treatments prn.
--- NOTE | 2018-11-14 18:02 | RADIOLOGY REPORT (SQ) ---
EXAM DESCRIPTION: CAROTID DOPPLER COMPLETED DATE/TIME: 11/14/2018 5:03 pm REASON FOR STUDY: syncope COMPARISON: None. TECHNIQUE: Grayscale ultrasound, Doppler velocity and spectra, and color Doppler images acquired of the extra-cranial carotid and vertebral arteries. Images stored on PACS. LIMITATIONS: None. FINDINGS: RIGHT CAROTID CCA Velocities: Within normal limits. ICA Velocities Peak systolic 71 cm/s. End diastolic 21 cm/s. Proximal ICA/CCA peak systolic ratio 0.6. Spectra normal. No significant plaque. LEFT CAROTID CCA Velocities: Within normal limits. ICA Velocities Peak systolic 67 cm/s. End diastolic 17 cm/s. Proximal ICA/CCA peak systolic ratio 0.8. Spectra normal. No significant plaque. VERTEBRAL ARTERIES: Antegrade flow. Normal waveforms. SUBCLAVIAN ARTERIES: No finding. OTHER: No other significant finding. IMPRESSION: NO HEMODYNAMICALLY SIGNIFICANT STENOSIS. COMMENT: Quality ID #[id number]: Velocity criteria are extrapolated from the diameter data as defined by t he Society of Radiologists in Ultrasound Consensus Conference. Radiology 2003: 229; 340-346. TECHNICAL DOCUMENTATION: JOB ID: [id number] [employer]- All Rights Reserved Reading location - IP/workstation name: [email or web address]
[2018-11-15] MEDS: NORMAL SALINE 1000 ML 1,000 ML IV PRN ×2 (00:48→12:02)
[2018-11-15] MEDS: HEPARIN SOD (PORCINE) 5,000 UNIT/ML 1 ML SYRINGE SUBCUT SCH ×2 (05:12→14:40)
[2018-11-15] MEDS ORDERED: (PENDING PHARMACY ID) (Trazodone Hcl [Desyrel] 100 MG) PO PRN (08:52)
[2018-11-15] MEDS ORDERED: VENLAFAXINE HCL 75 MG CAP.SR.24H PO SCH (10:00)
[2018-11-15] MEDS ORDERED: METOPROLOL TARTRATE 25 MG TABLET PO SCH (10:00)
[2018-11-15] MEDS ORDERED: TRAZODONE HCL 50 MG TABLET PO PRN (10:10)
[2018-11-15] MEDS ORDERED: TOPIRAMATE 25 MG TABLET PO SCH (12:00)
--- NOTE | 2018-11-15 13:14 | PDOC PROGRESS REPORT ---
Subjective Progress Note for:: 11/15/18 Subjective:: This is a 58 yr old male with a PMH of asthma, dyslipidemia, essential tremor, anxiety, depression and polypharmacy who preented with fall and syncope. He was admitted for a syncope work-up. He also sustained laceration on the head form the fall. This morning, he says he says he feels dizzy and lightheaded when he walks. His morning vital signs show orthostatic blood pressures. Will start him on IV fluids and continue monitoring orthostats. 11/15: No acute event overnight. He is still mildly orthostatic but this has significantly improved with IV fluids. He says his dizziness has also improved. Denies chest pain or SOB. Reason For Visit: SYNCOPE Physical Exam Vital Signs: Temp Pulse Resp BP Pulse Ox 97.8 F 85 16 160/98 H 99 11/15/18 07:00 11/15/18 07:00 11/15/18 07:00 11/15/18 07:00 11/15/18 07:00 Intake & Output 11/14/18 11/15/18 11/16/18 06:59 06:59 06:59 Intake Total 1827 1000 Output Total 0 1525 Balance 0 302 1000 Weight 168 lb 13.985 oz 172 lb 13.478 oz General appearance: PRESENT: no acute distress, well-developed, well-nourished Head exam: PRESENT: atraumatic, normocephalic Eye exam: PRESENT: conjunctiva pink, EOMI, PERRLA. ABSENT: scleral icterus Ear exam: PRESENT: normal external ear exam Mouth exam: PRESENT: moist, tongue midline Neck exam: ABSENT: carotid bruit, JVD, lymphadenopathy, thyromegaly Respiratory exam: PRESENT: clear to auscultation deejay. ABSENT: rales, rhonchi, wheezes Cardiovascular exam: PRESENT: RRR. ABSENT: diastolic murmur, rubs, systolic murmur Pulses: PRESENT: normal dorsalis pedis pul GI/Abdominal exam: PRESENT: normal bowel sounds, soft. ABSENT: distended, guarding, mass, organolmegaly, rebound, tenderness Rectal exam: PRESENT: deferred Neurological exam: PRESENT: alert, awake, oriented to person, oriented to place, oriented to time, oriented to situation, CN II-XII grossly intact. ABSENT: motor sensory deficit Results Laboratory Results: 11/13/18 18:06 11/13/18 18:06 11/13/18 11/13/18 11/13/18 18:06 18:06 23:20 Creatine Kinase 115 CK-MB (CK-2) 3.25 Troponin I < 0.012 < 0.012 11/14/18 11/14/18 05:07 11:38 Creatine Kinase CK-MB (CK-2) Troponin I < 0.012 < 0.012 Impressions: Cervical Spine CT 11/13/18 18:22 IMPRESSION: CHRONIC DEGENERATIVE CHANGES. NO ACUTE FINDINGS. Chest X-Ray 11/13/18 18:22 IMPRESSION: NO ACUTE RADIOGRAPHIC FINDING IN THE CHEST. Head CT 11/13/18 18:22 IMPRESSION: NORMAL BRAIN CT WITHOUT CONTRAST. EVIDENCE OF ACUTE STROKE: NO. Carotid Doppler Study 11/14/18 09:19 IMPRESSION: NO HEMODYNAMICALLY SIGNIFICANT STENOSIS. Assessment and Plan - Diagnosis (1) Syncope Qualifiers: Encounter type: initial encounter Is this a current diagnosis for this admission?: Yes Plan: Likely from orthostasis with polpyharmacy contributing. He says his PCP has actually been cutting down on his Klonopin and other psych meds. 11/15: Improving with IV fluids. Klonopin and lisinopril-HCTZ on hold. Resume venlafaxine and trazodone. Carotid doppler is unremarkable. Will switch to lisinopril-HCTZ to lopressor. (2) Asthma Is this a current diagnosis for this admission?: Yes Plan: Not in exacerbation. Breathing treatments prn. - Time Time Spent with patient: 15-24 minutes
[2018-11-15 14:01] LABS: ABSOLUTE BASOPHILS # (AUTO) 0.1 10^3/uL (0.0-0.2); ABSOLUTE EOSINOPHILS # (AUTO) 0.1 10^3/uL (0.0-0.6); ABSOLUTE LYMPHOCYTES (AUTO) 0.9 10^3/uL (0.5-4.7); ABSOLUTE MONOCYTES (AUTO) 0.4 10^3/uL (0.1-1.4); ABSOLUTE NEUT (AUTO) 3.7 10^3/uL (1.7-8.2); EOSINOPHILS % (AUTO) 1.1 % (0-6); HEMATOCRIT 43.6 % (37.9-51.0); LYMPHOCYTES % (AUTO) 17.3 % (13-45); MEAN CORPUSCULAR HEMOGLOBIN 29.4 pg (27.0-33.4); MEAN CORPUSCULAR HGB CONC 34.9 g/dL (32.0-36.0); MEAN CORPUSCULAR VOLUME 84 fl (80-97); PLATELET COUNT 190 10^3/uL (150-450); RED BLOOD COUNT 5.18 10^6/uL (4.35-5.55); RED CELL DISTRIBUTION WIDTH 14.2 % (11.5-14.0); SEGMENTED NEUTROPHILS % (AUTO) 72.6 % (42-78); TOTAL CELLS COUNTED % (AUTO) 100 %; WHITE BLOOD COUNT 5.1 10^3/uL (4.0-10.5)
[2018-11-15 14:02] LABS: HEMOGLOBIN 15.2 g/dL (13.5-17.0)
[2018-11-15 14:10] LABS: ALANINE AMINOTRANSFERASE 26 U/L (21-72); ALBUMIN 3.2 g/dL (3.5-5.0); ALKALINE PHOSPHATASE 153 U/L (38-126); ANION GAP 6 (5-19); ASPARTATE AMINO TRANSFERASE 26 U/L (17-59); BILIRUBIN,DIRECT 0.3 mg/dL (0.0-0.4); BILIRUBIN,TOTAL 0.8 mg/dL (0.2-1.3); BLOOD UREA NITROGEN 12 mg/dL (7-20); CALCIUM 9.3 mg/dL (8.4-10.2); CARBON DIOXIDE 25 mmol/L (22-30); CHLORIDE 110 mmol/L (98-107); GLUCOSE 121 mg/dL (75-110); POTASSIUM 3.7 mmol/L (3.6-5.0); SODIUM 140.9 mmol/L (137-145); TOTAL PROTEIN 5.5 g/dL (6.3-8.2)
[2018-11-15] MEDS ORDERED: LORAZEPAM INJ 2 MG/1 ML VIAL IV ONE (14:15)
--- NOTE | 2018-11-15 17:37 | PDOC DISCHARGE SUMMARY ---
General - Admit/Disc Date/PCP Admission Date/Primary Care Provider: 11/13/18 22:03 [facility] Discharge Date: 11/15/18 - Discharge Diagnosis (1) Syncope Is this a current diagnosis for this admission?: Yes (2) Asthma Is this a current diagnosis for this admission?: Yes - Additional Information Resuscitation Status: Full Code Prescriptions: Metoprolol Tartrate [Lopressor 50 mg Tablet] 50 mg PO Q12H #60 tablet Home Medications: Esomeprazole Magnesium [Nexium] 40 mg PO BID 11/14/18 [place]-3 Fatty Acids/Fish Oil [Fish Oil 1,000 mg Capsule] 1 cap PO DAILY 11/14/18 Topiramate [Topamax] 50 mg PO BID 11/14/18 Trazodone HCl [Desyrel] 100 mg PO HSP PRN 11/14/18 Venlafaxine HCl ER [Effexor Xr 75 mg Cap.sr] 225 mg PO DAILY 11/14/18 Metoprolol Tartrate [Lopressor 50 mg Tablet] 50 mg PO Q12H #60 tablet 11/15/18 History of Present Illness History of Present Illness: This is a 58 yr old male with a PMH of asthma, dyslipidemia, essential tremor, anxiety, depression and polypharmacy who presented with fall and syncope. He was admitted for a syncope work-up. He also sustained laceration on the head form the fall. Hospital Course Hospital Course: This is a 58 yr old male with a PMH of asthma, dyslipidemia, essential tremor, anxiety, depression and polypharmacy who presented with fall and syncope. He was admitted for a syncope work-up. He also sustained laceration on the head form fall. 11/14: This morning, he says he says he feels dizzy and lightheaded when he walks. His syncope work-up was remarkable for positive orthostasis. Carotid doppler was negative. He was started on IV fluids which did improve his orthostasis and dizziness. His antihypertensives were also switched to lopressor. Also recommended to discontinue Klonopin on discharge and he says this was already recently d/rylan by his PCP due to him being on multiple medications. He was also recommended to minimize using sildenafil. Physical Exam Vital Signs: Temp Pulse Resp BP Pulse Ox 98.3 F 88 16 166/94 H 99 11/15/18 15:31 11/15/18 15:31 11/15/18 15:31 11/15/18 15:31 11/15/18 15:31 Intake & Output 11/14/18 11/15/18 11/16/18 06:59 06:59 06:59 Intake Total 1827 2840 Output Total 0 1525 800 Balance 0 302 2040 Weight 168 lb 13.985 oz 172 lb 13.478 oz General appearance: PRESENT: no acute distress, well-developed, well-nourished Head exam: PRESENT: atraumatic, normocephalic Eye exam: PRESENT: conjunctiva pink, EOMI, PERRLA. ABSENT: scleral icterus Ear exam: PRESENT: normal external ear exam Mouth exam: PRESENT: moist, tongue midline Neck exam: ABSENT: carotid bruit, JVD, lymphadenopathy, thyromegaly Respiratory exam: PRESENT: clear to auscultation deejay. ABSENT: rales, rhonchi, wheezes Cardiovascular exam: PRESENT: RRR. ABSENT: diastolic murmur, rubs, systolic murmur Pulses: PRESENT: normal dorsalis pedis pul GI/Abdominal exam: PRESENT: normal bowel sounds, soft. ABSENT: distended, guarding, mass, organolmegaly, rebound, tenderness Rectal exam: PRESENT: deferred Neurological exam: PRESENT: alert, awake, oriented to person, oriented to place, oriented to time, oriented to situation, CN II-XII grossly intact. ABSENT: motor sensory deficit Results Laboratory Results: 11/15/18 13:35 11/15/18 13:35 11/15/18 11/15/18 13:35 13:35 WBC 5.1 RBC 5.18 Hgb 15.2 D Hct 43.6 MCV 84 MCH 29.4 MCHC 34.9 RDW 14.2 H Plt Count 190 Seg Neutrophils % 72.6 Lymphocytes % 17.3 Monocytes % 8.0 Eosinophils % 1.1 Basophils % 1.0 Absolute Neutrophils 3.7 Absolute Lymphocytes 0.9 Absolute Monocytes 0.4 Absolute Eosinophils 0.1 Absolute Basophils 0.1 Sodium 140.9 Potassium 3.7 Chloride 110 H Carbon Dioxide 25 Anion Gap 6 BUN 12 Creatinine 0.97 Est GFR ( Amer) > 60 Est GFR (Non-Af Amer) > 60 Glucose 121 H Calcium 9.3 Total Bilirubin 0.8 AST 26 ALT 26 Alkaline Phosphatase 153 H Total Protein 5.5 L Albumin 3.2 L 11/13/18 11/13/18 11/13/18 18:06 18:06 23:20 Creatine Kinase 115 CK-MB (CK-2) 3.25 Troponin I < 0.012 < 0.012 11/14/18 11/14/18 05:07 11:38 Creatine Kinase CK-MB (CK-2) Troponin I < 0.012 < 0.012 Impressions: Cervical Spine CT 11/13/18 18:22 IMPRESSION: CHRONIC DEGENERATIVE CHANGES. NO ACUTE FINDINGS. Chest X-Ray 11/13/18 18:22 IMPRESSION: NO ACUTE RADIOGRAPHIC FINDING IN THE CHEST. Head CT 11/13/18 18:22 IMPRESSION: NORMAL BRAIN CT WITHOUT CONTRAST. EVIDENCE OF ACUTE STROKE: NO. Carotid Doppler Study 11/14/18 09:19 IMPRESSION: NO HEMODYNAMICALLY SIGNIFICANT STENOSIS. Qualifiers - * PATIENT BEING DISCHARGED WITH ANY OF THE FOLLOWING DIAGNOSIS: No
[2018-11-15 18:02] VITALS: BP 160/98
== END 2018-11-15 18:35 | disposition home or self-care (01) ==
LOC: ER 17:50 → EH 22:03 → 3N 11-14 03:02
PROVIDERS: ADMIT Internal Medicine; ATTEND Internal Medicine
DX: R55 Syncope and collapse (principal); J45.909 Unspecified asthma, uncomplicated; S01.81XA Laceration without foreign body of other part of head, initial encounter; W19.XXXA Unspecified fall, initial encounter; R42 Dizziness and giddiness; F41.9 Anxiety disorder, unspecified; F32.9 Major depressive disorder, single episode, unspecified; E78.5 Hyperlipidemia, unspecified; Z79.899 Other long term (current) drug therapy; Z79.82 Long term (current) use of aspirin; Z87.898 Personal history of other specified conditions
CPT/HCPCS: 93005; 99285; 36415 ×3; 82553; 82962; 82550; 83735; 85025 ×2; 85610; 80053 ×2; 84484 ×2; 80307; 93880; 71045; 70450; 72125; 93010; G0378 ×3; J1644; J2060; J3490 ×2; J7030 ×2